=== PATIENT | male | born 1975 | race Caucasian/White ===

== ENCOUNTER → 2016-03-27 | Outpatient (CLI) | payer OTHER ==
[~2016-03-27] MED LIST: ALBU8I INH; HYDR-3534 PO; PRED20 PO; ZITH250T PO
--- NOTE | 2016-03-28 10:18 | RSPPFT ---
DATE OF PROCEDURE: COMMENTS: Spirometry with FVC of 4.7 predicted 5.4, FEV1 of 3.8 predicted 4.0, FEV1/FVC ratio 80% predicted 75%. Lung volumes are within the predicted range. There is a slight increase in the RV. DLCO is within the predicted range. IMPRESSION: On the basis of the above, patient has flow values, lung volumes and DLCO within the predicted range.
== END ==
LOC: HRSP 10:25
PROVIDERS: ATTEND Family Medicine
DX: R06.02 Shortness of breath (principal)
CPT/HCPCS: 94060; 94726; 94729